=== PATIENT | female | born 1965 | race African-American/Black ===

== ENCOUNTER → 2017-11-26 | Outpatient (CLI) | payer OTHER ==
[~2017-11-26] MED LIST: ALTACE5 M1 PO; HYDROCHLOROTHIA50 MG PO; METOPROLOL SUCC50 MG PO
== END ==
LOC: RAD 13:53
DX: Z12.31 Encounter for screening mammogram for malignant neoplasm of breast (principal)

== ENCOUNTER → 2019-02-03 | Outpatient (CLI) | payer OTHER | LOC: RAD 12-07 07:26 | DX: Z12.31 Encounter for screening mammogram for malignant neoplasm of breast (principal) ==

== ENCOUNTER → 2020-10-26 | Outpatient (CLI) | payer OTHER | LOC: BC 10:02 | PROVIDERS: ATTEND Internal Medicine | DX: Z12.31 Encounter for screening mammogram for malignant neoplasm of breast (principal) ==